=== PATIENT | female | born 1945 | race Caucasian/White ===

== ENCOUNTER 2019-03-18 08:43 | Emergency (ER) | payer MEDICARE ==
[2019-03-18 08:43] VITALS: BMI 31.8
[2019-03-18] MEDS ORDERED: Sodium Chloride 0.9% 500 ML IV ONE ×2 (08:59→09:52)
--- NOTE | 2019-03-18 09:02 | C.PDOC ---
History Of Present Illness 73 year old female with a history of HTN, diabetes, CAD, presents to the emergency department for evaluation of feeling dizzy yesterday, dizzy like lightheaded. no vertigo. . Patient also reports abdominal pain, stating that she felt gas in her stomach. Patient reports nausea, but denies vomiting, fever, and headache. Time Seen by Provider: 03/18/19 08:54 Chief Complaint (Nursing): Dizziness/Lightheaded History Per: Patient History/Exam Limitations: no limitations Onset/Duration Of Symptoms: Days (1) Current Symptoms Are (Timing): Still Present Past Medical History Reviewed: Historical Data, Nursing Documentation, Vital Signs Vital Signs: Last Vital Signs Temp 98.6 F 03/18/19 08:47 Pulse 70 03/18/19 08:47 Resp 20 03/18/19 08:47 BP 158/84 H 03/18/19 08:47 Pulse Ox 98 03/18/19 08:47 Primary Care Provider: James Gao Jr. - Medical History PMH: Diabetes, HTN, Hypercholesterolemia Surgical History: No Surg Hx Family History: States: No Known Family Hx - Social History Hx Tobacco Use: No Hx Alcohol Use: No Hx Substance Use: No - Immunization History Hx Tetanus Toxoid Vaccination: No Hx Influenza Vaccination: No Hx Pneumococcal Vaccination: No Review Of Systems Except As Marked, All Systems Reviewed And Found Negative. Constitutional: Negative for: Fever, Chills Cardiovascular: Negative for: Chest Pain Respiratory: Negative for: Cough, Shortness of Breath Gastrointestinal: Positive for: Nausea, Abdominal Pain. Negative for: Vomiting Neurological: Positive for: Dizziness. Negative for: Weakness, Numbness, Headache Physical Exam - Physical Exam Appears: Non-toxic, No Acute Distress Skin: Normal Color, Warm, Dry Head: Atraumatic, Normacephalic Eye(s): bilateral: Normal Inspection Oral Mucosa: Moist Neck: Normal, Supple Chest: Symmetrical, No Tenderness Cardiovascular: Rhythm Regular, No Murmur Respiratory: Normal Breath Sounds, No Rales, No Rhonchi, No Wheezing Gastrointestinal/Abdominal: Soft, Tenderness (minimal epigastric tenderness), No Guarding, No Rebound Extremity: Normal ROM Neurological/Psych: Oriented x3, Normal Speech, Normal Cognition, No Cerebellar Signs, Normal Motor, Normal Sensation, Other (steady gait) ED Course And Treatment - Laboratory Results Result Diagrams: 03/18/19 09:49 03/18/19 09:49 ECG: Interpreted By Me, Viewed By Me Interpretation Of ECG: Normal sinus rhythm at 62bpm, no ST/T wave changes. O2 Sat by Pulse Oximetry: 98 (RA) Pulse Ox Interpretation: Normal - Other Rad CT Head X-Ray: Viewed By Me, Read By Radiologist Interpretation: IMPRESSION: No evidence of acute intracranial hemorrhage mass effect or midline shift. Mild to moderate enlargement of the sella turcica contains low attenuation structure. The pituitary gland is not visualized. No evidence of bony destruction or significant compression on the optic chiasm. If clinically warranted follow-up non emergent MRI of the pituitary gland and sella turcica may be obtained. - CT Scan/US CT Abdomen and Pelvis Other Rad Studies (CT/US): Read By Radiologist, Radiology Report Reviewed CT/US Interpretation: IMPRESSION: No evidence of pancreatitis. Gallstones without CT evidence of acute cholecystitis. Large low-attenuation mass lesion in the uterus may represent large fibroid with central necrosis. The po ssibility of malignant degeneration of the fibroid or malignant uterine neoplasm should be excluded. Further evaluation is recommended. Medical Decision Making Medical Decision Making: noncspecific dizziness, neuro intact. ro metabolic infectious cardiac int racrainal abdominal etiologyn: EKG Chemistry Bloodwork Protonix NaCl IV Fluids Zofran Urinalysis labs neg. ct added as pt with persistent abd pain. ct shows gallstones no e/o of infection. pain resolved. labs neg. neuro intact steady gait. stable for dc. Patient received bedside sonogram, no evidence of cholecystitis, no wall thickening, pain resolved. Disposition - Disposition Referrals: Nghia Ellis MD [Staff Provider] - [facility] [Outside] [facility] [Outside] [facility] [Outside] Gopal Lemons MD [Staff Provider] - Disposition: HOME/ ROUTINE Disposition Time: 11:57 Condition: STABLE Additional Instructions: return to er with worsening symptoms or concerns. please see specilaist. you need to discuss your ct finidings with specialist. Instructions: Acute Abdomen (Belly Pain), Dizziness, Nonvertigo, (DC), Near Fainting Forms: [employer] (Yi) - Clinical Impression Clinical Impression: Dizziness, Gallstone - Scribe Statement The provider has reviewed the documentation as recorded by the Scribe (Kayode Walter) Provider Attestation: All medical record entries made by the Scribe were at my direction and personally dictated by me. I have reviewed the chart and agree that the record accurately reflects my personal performance of the history, physical exam, medical decision making, and the department course for this patient. I have also personally directed, reviewed, and agree with the discharge instructions and disposition.
[2019-03-18] MEDS ORDERED: Sodium Chloride 0.9% 1,000 ML ONE (09:26)
[2019-03-18 09:55] LABS: BASO # 0.1 K/uL (0.0-0.2); BASO % 0.9 % (0.0-2.0); EOS # 0.2 K/uL (0.0-0.7); EOS % 2.5 % (0.0-4.0); HEMOGLOBIN 14.3 g/dL (11.0-16.0); LYMPH # 1.4 K/uL (1.0-4.3); LYMPH % 20.3 % (20.0-40.0); MEAN CORPUSCULAR HGB CONC 35.3 g/dL (33.0-37.0); MEAN PLATELET VOLUME 7.7 fL (7.2-11.7); MONO # 0.5 K/uL (0.0-0.8); MONO % 7.8 % (0.0-10.0); NEUT # 4.6 K/uL (1.8-7.0); NEUT % 68.5 % (50.0-75.0); RBC 4.76 Mil/uL (3.80-5.20); RED CELL DISTRIBUTION WIDTH 12.8 % (11.5-14.5); WHITE BLOOD COUNT 6.7 K/uL (4.8-10.8)
[2019-03-18 10:03] LABS: INR 1.1; PROTHROMBIN TIME 11.5 SECONDS (9.7-12.2)
[2019-03-18 10:12] LABS: ALB/GLOB RATIO 1.3 (1.0-2.1); ALBUMIN 4.2 g/dL (3.5-5.0); ALT/SGPT 27 U/L (9-52); AST/SGOT 29 U/L (14-36); BILIRUBIN,DIRECT 0.4 mg/dL (0.0-0.4); BLOOD UREA NITROGEN 21 mg/dL (7-17); CALCIUM 9.8 mg/dl (8.6-10.4); GFR NON-AFRICAN AMERICAN > 60; LIPASE 85 U/L (23-300)
[2019-03-18] MEDS ORDERED: Iodixanol 320 MG/ML 100 ML BOTTLE IV ONE (10:43)
[2019-03-18 11:14] LABS: SQUAMOUS EPITHIAL 9 /hpf (0-5); URINE BACTERIA OCC (<OCC); URINE BILIRUBIN NEGATIVE (NEGATIVE); URINE BLOOD NEGATIVE (NEGATIVE); URINE CLARITY Hazy (Clear); URINE COLOR Yellow (YELLOW); URINE GLUCOSE (UA) NORMAL (Normal); URINE LEUKOCYTE ESTERASE NEG Leu/uL (Negative); URINE PROTEIN 2+ mg/dL (NEGATIVE); URINE UROBILINOGEN NORMAL mg/dL (0.2-1.0)
--- NOTE | 2019-03-18 11:32 | CT ---
Date of service: 03/18/2019 PROCEDURE: CT HEAD WITHOUT CONTRAST. HISTORY: dizziness/near syncope COMPARISON: None available. TECHNIQUE: Axial computed tomography images were obtained through the head/brain without intravenous contrast. Radiation dose: Total exam DLP = 1118.66 mGy-cm. This CT exam was performed using one or more of the following dose reduction techniques: Automated exposure control, adjustment of the mA and/or kV according to patient size, and/or use of iterative reconstruction technique. FINDINGS: HEMORRHAGE: No intracranial hemorrhage. BRAIN: No mass effect or edema. No atrophy or chronic microvascular ischemic changes. VENTRICLES: Unremarkable. No hydrocephalus. CALVARIUM: Unremarkable. There [id number] enlargement of the sella turcica. The pituitary gland is not visualized in this study. PARANASAL SINUSES: No evidence of significant sinuses disease. MASTOID AIR CELLS: Unremarkable as visualized. No inflammatory changes. OTHER FINDINGS: None. IMPRESSION: No evidence of acute intracranial hemorrhage mass effect or midline shift. Mild to moderate enlargement of the sella turcica contains low attenuation structure. The pituitary gland is not visualized. No evidence of bony destruction or significant compression on the optic chiasm. If clinically warranted follow-up non emergent MRI of the pituitary gland and sella turcica may be obtained.
--- NOTE | 2019-03-18 11:51 | CT ---
Date of service: 03/18/2019 PROCEDURE: CT Abdomen and Pelvis with contrast HISTORY: upper abd pain COMPARISON: None. TECHNIQUE: Contrast dose: 100 mL of Visipaque 320 intravenously. Axial and reformatted coronal and sagittal CT images of the abdomen and pelvis were obtained after IV contrast administration. Radiation dose: Total exam DLP = 664.07 mGy-cm. This CT exam was performed using one or more of the following dose reduction techniques: Automated exposure control, adjustment of the mA and/or kV according to patient size, and/or use of iterative reconstruction technique. FINDINGS: LOWER THORAX: No evidence of acute pathology at the lung bases. No evidence of pleural effusion. The heart is enlarged. LIVER: Mild hepatomegaly and moderate hepatic steatosis are noted. GALLBLADDER AND BILE DUCTS: Gallstones are noted without evidence of acute cholecystitis. PANCREAS: Unremarkable. No gross lesion or ductal dilatation. SPLEEN: Unremarkable. ADRENALS: Unremarkable. No mass. KIDNEYS AND URETERS: Unremarkable. No hydronephrosis. No solid mass. VASCULATURE: Unremarkable. No aortic aneurysm. No aortic atherosclerotic calcification or mural plaque present. BOWEL: Unremarkable. No obstruction. No gross mural thickening. APPENDIX: There is no evidence of appendicitis. PERITONEUM: Unremarkable. No free fluid. No free air. LYMPH NODES: Unremarkable. No enlarged lymph nodes. BLADDER: Unremarkable. REPRODUCTIVE: There is low-attenuation mass lesion in the uterus measures 8.8 x 7 centimeter likely represent fibroid. The possibility of malignant degeneration should be excluded. There is adjacent low-attenuation or fluid collection in the anterior aspect of the uterus measures 2.2 x 1.5 centimeter. BONES: No acute fracture. OTHER FINDINGS: None. IMPRESSION: No evidence of pancreatitis. Gallstones without CT evidence of acute cholecystitis. Large low-attenuation mass lesion in the uterus may represent large fibroid with central necrosis. The possibility of malignant degeneration of the fibroid or malignant uterine neoplasm should be excluded. Further evaluation is recommended.
[2019-03-18 12:15] VITALS: BP 160/76; PULSE 74; RESP 18; TEMP 97.7
[2019-03-18 12:48] VITALS: O2SAT 98
--- NOTE | 2019-03-19 20:43 | CARD ---
APPROVED REPORT Date of service: 03/18/2019 EKG Measurement Heart [id number] <Conclusion> Normal sinus rhythm Minimal voltage criteria for LVH, may be normal variant Borderline ECG
== END 2019-03-18 12:25 | disposition home or self-care (01) ==
LOC: C.ER 08:43
DX: R42 Dizziness and giddiness (principal); K80.20 Calculus of gallbladder without cholecystitis without obstruction
CPT/HCPCS: 70450; 74177; 80053; 81001; 82248; 83690; 84484; 85025; 85610; 85730; 93005; 96374; 96375; 99285; C9113; J2405; J7040; Q9967